=== PATIENT | male | born 1990 ===

== ENCOUNTER 2022-04-06 21:38 | Emergency (ER) | payer SELFPAY ==
[2022-04-06] MEDS ORDERED: Ventolin HFA Inhaler 60 PUFF INHALER ONE (22:26)
== END 2022-04-06 22:37 | disposition home or self-care (01) ==
LOC: CSHERS 21:38
DX: J45.901 Unspecified asthma with (acute) exacerbation (principal); Z79.899 Other long term (current) drug therapy
CPT/HCPCS: 99284